=== PATIENT | female | born 1995 | race Caucasian/White ===

== ENCOUNTER → 2022-05-21 | Outpatient (CLI) | payer MEDICAID, SELFPAY ==
[2022-05-21 13:41] LABS: Erythrocyte Sedimentation Rate 28 mm/hr (0-30)
[2022-05-21 13:43] LABS: Absolute Lymphocyte Count 2.64 X10^3/uL (0.83-4.51); Absolute Neutrophil Count 6.7 X10^3/uL (2.0-7.7); Basophil# 0.06 X10^3/uL; Basophil% 0.6 % (0-1); Eosinophil# 0.08 X10^3/uL; Eosinophils% 0.8 % (0-5); Hematocrit 39.3 % (37-47); Hemoglobin 13.8 g/dL (12.0-15.0); Lymphocyte # 2.64 X10^3/ul (0.83-4.51); Mean Corp Hgb Conc 35.1 g/dL (32-36); Mean Corpuscular Hgb 30.7 pg (27.0-32.0); Mean Corpuscular Volume 87.5 fL (81-99); Mean Platelet Vol. 9.2 fl (6.2-12.0); Monocyte# 0.69 X10^3/uL; Monocyte% 6.8 % (0-10); NRBC Flagged by Analyzer 0 % (0-5); Neutrophil # 6.66 X10^3/uL (2.7-7.7); Neutrophil % 65.6 % (47-70); Platelet Count 366 K/mm3 (150-450); RBC Distribution Width CV 11.9 % (11.6-14.6); RBC Distribution Width SD 38.2 fl (35.1-43.9); Red Blood Count 4.49 M/mm3 (4.2-5.4); White Blood Count 10.2 K/mm3 (4.4-11.0)
[2022-05-21 14:05] LABS: ALB/GLOB Ratio 0.9 RATIO (0.9-2.4); AST(SGOT) 19 U/L (15-37); Alanine Aminotransfer ALT/SGPT 24 U/L (13-56); Alkaline Phosphatase 74 U/L (45-117); Anion Gap 9 (5-15); BUN 13 mg/dL (7-18); BUN/Creat Ratio 17.4 RATIO (10-20); Calcium,Total 9.7 mg/dL (8.5-10.1); Chloride 103 mmol/L (98-107); Creatinine, Serum 0.75 mg/dL (0.55-1.02); EST Glomerular Filtration Rate 98 mL/min (>60); Est Glom Filt Rate - Afr Amer 118 mL/min (>60); Globulin 4.4 g/dL (2.2-4.2); Glucose 103 mg/dL (74-106); LDH 204 U/L (84-246); Protein, Total 8.4 g/dL (6.4-8.2); Sodium Level 135 mmol/L (136-145)
[2022-05-24 13:07] LABS: Anti-Centromere B Ab <0.2 AI (0.0-0.9); Anti-Chromatin <0.2 AI (0.0-0.9); Anti-Jo <0.2 AI (0.0-0.9); Anti-Scleroderma-70 AB <0.2 AI (0.0-0.9); RNP Ab <0.2 AI (0.0-0.9); SJOGREN'S Anti-SS-A test < 0.2 AI (0.0-0.9); SJOGREN'S Anti-SS-B test < 0.2 AI (0.0-0.9); Smith Ab <0.2 AI (0.0-0.9)
[2022-05-24 15:39] LABS: Anti-Mitochondrial AB <20.0 Units (0.0-20.0); Anti-dsDNA Ab <1 IU/mL (0-9)
[2022-05-24 16:08] LABS: Endomysial Antibody IgA Negative (Negative)
[2022-05-24 17:18] LABS: Immunoglobulin A 258 mg/dL (87-352); t-Transglutaminase IgA <2 U/mL (0-3)
[2022-05-27 22:06] LABS: Cytoplasmic Ab (C-ANCA) <1:20 titer (Neg:<1:20); Immunoglobulin A 261 mg/dL (87-352); Immunoglobulin E 16 IU/mL (6-495); Immunoglobulin G 886 mg/dL (586-1602)
[2022-05-28 10:06] LABS: Anti-Smooth Muscle ABS 8 Units (0-19); Immunoglobulin M 246 mg/dL (26-217); Perinuclear Ab (P-ANCA) <1:20 titer (Neg:<1:20)
== END | disposition home or self-care (01) ==
PROVIDERS: Referring Provider Internal Medicine Gastroenterology; Visit Provider Internal Medicine Gastroenterology
DX: E66.9 Obesity, unspecified (principal); Z83.79 Family history of other diseases of the digestive system
CPT/HCPCS: 36415; 80053; 82784; 82785; 83516; 83615; 85025; 85652; 86140; 86225; 86235; 86255; 86256

== ENCOUNTER → 2022-06-21 | Outpatient (CLI) | payer MEDICAID, SELFPAY ==
--- NOTE | 2022-06-21 07:54 | US_ITS ---
STUDY: ABDOMINAL ULTRASOUND - ELASTOGRAPHY REASON FOR VISIT: Female, 26 years old. Obesity. TECHNIQUE: Liver stiffness measurements were obtained on a [employer] RS 85 ultrasound machine using a CA 1-7 probe following the SRU guidelines. 3 measurements were obtained using a 2-D-SWE method. The IQR/M was 20% suggesting a quality data set. TECHNICAL QUALITY: Adequate. COMPARISON: Comparison is made with prior examination done earlier today. FINDINGS: Liver: Mild degree of fatty infiltration of the liver. Median liver stiffness measured 4 kPa. US/Elastography Parenchyma/Organ IMPRESSION: Liver stiffness measures 4 kPa compatible with FO (Normal) Metavir score. score. Electronically Signed: Harrison Cantu MD at 10:46 EDT ,
--- NOTE | 2022-06-21 07:54 | US_ITS ---
STUDY: ABDOMINAL ULTRASOUND - RIGHT UPPER QUADRANT REASON FOR VISIT: Female, 26 years old liver screening -- OBESITY -- FAMILY HX OF FATTY LIVER TECHNIQUE: Ultrasound evaluation of the right upper quadrant was performed with real-time and static grey-scale imaging. TECHNICAL QUALITY: Adequate. COMPARISON: None. FINDINGS: Liver: The liver measures 15.3 cm. There is increased echogenicity consistent with a mild degree of fatty infiltration. The bile ducts are within normal limits. There is hepatic color flow. The direction of portal flow is hepatopetal. There is no demonstrated mass lesion. Gallbladder: Normal distended gallbladder. The gallbladder wall measures 2.0 mm. There is a negative sonographic Urbina''s sign. There is no pericholecystic fluid. There are no gallstones. Common Bile Duct (C.B.D.): The common bile duct measures 4.1 mm. Pancreas: Normal size of the head, body and tail of the pancreas. There is normal echogenicity of the pancreas. There is no demonstrated pancreatic mass or cyst. Right Kidney: Normal size of the right kidney. The right kidney measures 10 cm x 5.4 cm x 4.9 cm. Normal renal cortex. The right cortex measures 1.4 cm. There is no demonstrated renal mass or cyst. There is no right hydronephrosis. US/Abdomen Limited IMPRESSION: Mild degree of fatty infiltration of the liver. Electronically Signed: Harrison Cantu MD at 10:39 EDT ,
== END | disposition home or self-care (01) ==
PROVIDERS: Referring Provider Internal Medicine Gastroenterology; Visit Provider Internal Medicine Gastroenterology
DX: E66.9 Obesity, unspecified (principal); Z83.79 Family history of other diseases of the digestive system
CPT/HCPCS: 76705; 76981

== ENCOUNTER → 2022-08-17 | Outpatient (CLI) | payer MEDICAID, SELFPAY | END | disposition home or self-care (01) | LOC: LAB 15:53 | PROVIDERS: PCP Internal Medicine; Visit Provider Nurse Practitioner Adult Health | DX: R79.82 Elevated C-reactive protein (CRP) (principal) | CPT/HCPCS: 36415; 86140 ==

== ENCOUNTER → 2023-08-09 | Outpatient (CLI) | payer MEDICAID, SELFPAY ==
[2023-08-09 16:43] LABS: Syphilis Antibodies Non-reactive
[2023-08-13 00:06] LABS: Lyme IgG P18 Ab Absent (.); Lyme IgG P23 Ab Absent (.); Lyme IgG P28 Ab Absent (.); Lyme IgG P30 Ab Absent (.); Lyme IgG P39 Ab Absent (.); Lyme IgG P41 Ab Absent (.); Lyme IgG P45 Ab Absent (.); Lyme IgG P58 Ab Absent (.); Lyme IgG P66 Ab Absent (.); Lyme IgG P93 Ab Absent (.); Lyme IgG WB Interpretation Negative (.); Lyme IgM P23 Ab Absent (.); Lyme IgM P39 Ab Absent (.); Lyme IgM P41 Ab Absent (.); Lyme IgM WB Interpretation Negative (.)
== END | disposition home or self-care (01) ==
PROVIDERS: PCP Internal Medicine; Visit Provider Dermatology
DX: L30.8 Other specified dermatitis (principal); L82.1 Other seborrheic keratosis; L57.8 Other skin changes due to chronic exposure to nonionizing radiation; D22.5 Melanocytic nevi of trunk; L81.4 Other melanin hyperpigmentation; D18.01 Hemangioma of skin and subcutaneous tissue; Z71.89 Other specified counseling; D22.9 Melanocytic nevi, unspecified
CPT/HCPCS: 36415; 86617; 86780

== ENCOUNTER 2025-08-02 10:12 | Emergency (ER) | payer OTHER, SELFPAY ==
[2025-08-02 10:13] VITALS: BP 119/94; PULSE 117; RESP 18; TEMP 36.6; O2SAT 99; BMI 24.8
[2025-08-02 10:21] VITALS: BP 122/93; PULSE 121; RESP 17; O2SAT 100
--- NOTE | 2025-08-02 10:26 | ED.VIS.CHEST ---
HPI History of Present Illness Chief Complaint: Chest Pain Informant: patient Onset/Context/Timing Onset: Days (3) Activity at onset: gradual Timing: Intermittent Quality: Positive for Sharp Location: Substernal Worsened By: Nothing Relieved By: Nothing Associated Symptoms: Positive for Lightheadedness (Occasional) and Palpitations; Negative for Nausea, Vomiting, Diaphoresis, Dyspnea, Cough, Fever or Acid Reflux Narrative Narrative: Patient presents with chest pain that has been intermittent over the past 3 days. Patient states it comes on gradually. Patient describes it as sharp. Patient states is over the substernal area. Patient states nothing makes it better nothing makes it worse. Patient admits to occasional lightheadedness. Patient also admits to some palpitations where she feels like her heart is racing today. Patient denies any shortness of breath or cough. Patient denies any nausea or vomiting. Patient denies any diaphoresis. Patient denies any cardiac or PE risk factors. CVD Risk Factors: Negative for Hypertension, Diabetes, Hypercholesterolemia, Family History 1' </=55 or Smoking PE Risk Factors: Negative for Recent Travel/Surgery, Recent Immobilization, Prior DVT or PE, Cancer or OCP + Smoking + >/=35 [facility] Medical History (Updated 08/02/25 @ 13:[address] Thomas Rust DO) ADHD (attention deficit hyperactivity disorder) Home Medications ?Medication ?Instructions ?Recorded ?Last Taken ?Type dextroamphetamine-amphetamine ER 20 mg PO QAM 08/17/22 Unknown History 20 mg 24hr capsule,extend release (Adderall XR) phentermine 30 mg capsule 30 mg PO DAILY #30 caps 08/17/22 Unknown Rx Allergy/AdvReac Type Severity Reaction Status Date / Time iodine AdvReac Intermediate Rash Verified 08/02/25 10:24 Surgical History (Updated 08/02/25 @ 10:[address] Thomas Rust DO) Hx of appendectomy Hx of shoulder surgery Social History (Updated 08/02/25 @ 10:[address] Thomas Rust DO) Smoking Status: Never smoker alcohol intake: current alcohol intake frequency: a few times a week substance use type: marijuana ROS ROS ED Constitutional Constitutional ED: Denies chills or fever(s) Eyes Eyes: Denies blurry vision or change in vision ENT ENT ED: Denies rhinorrhea or sore throat Cardiovascular Cardiovascular: Reports chest pain and palpitations Respiratory/Chest Respiratory/Chest: Denies cough or dyspnea Gastrointestinal Gastrointestinal: Denies nausea or vomiting Genitourinary Genitourinary ED: Denies dysuria or hematuria Musculoskeletal Musculoskeletal: Denies back pain or neck pain Integumentary Denies abscess or rash Neurologic Neurologic: Denies headache(s) or weakness Allergic/Immunologic Allergic/Immunologic ED: Denies mouth swelling or urticaria EXAM Physical Exam Const Vital Signs: 08/02/25 10:13 08/02/25 10:19 08/02/25 10:21 Temperature 97.9 F Temperature Source Temporal Pulse Rate 117 H 121 H Respiratory Rate 18 17 Respiratory Effort Normal Non-Labored Respiratory Pattern Normal Blood Pressure 119/94 H 122/93 H Blood Pressure Mean 102 102 Pulse Ox 99 100 Oxygen Delivery Method Room Air Room Air 08/02/25 10:32 08/02/25 12:12 Temperature Temperature Source Pulse Rate 110 H Respiratory Rate 22 H Respiratory Effort Respiratory Pattern Blood Pressure 117/105 H Blood Pressure Mean 109 Pulse Ox 100 Oxygen Delivery Method Room Air Room Air Positive well nourished and well developed General Appearance ED: well developed and NAD HEENT Reports moist mucous membranes Neck supple and no JVD Chest Wall palpation of chest normal Resp normal respiratory effort and clear to auscultation bilaterally Cardio regular rhythm Rate: tachycardic GI soft to palpation, non-tender and non-distended Extremity normal to inspection General Extremety ED: Negative for edema or tenderness General Extremity: Negative for edema Neuro oriented x3, CN's II-XII intact bilaterally and no sensory deficits noted Sensorium / Orientation: awake and alert Motor Exam: strength 5/5 throughout Psych mental status grossly normal Skin no rashes or lesions noted Heart Score History: Slightly/Non-Suspicious Age: </= 45 years Risk Factors: No Risk Factors Troponin: </= Normal Limit Score: 0 MDM MDM MDM Narrative Medical decision making narrative: Differential diagnosis includes cardiac dysrhythmia, cardiac ischemia, pneumonia, bronchitis, pulmonary embolism, gastroesophageal reflux disease, and anxiety. EKG will be obtained to assess for cardiac dysrhythmia and cardiac ischemia. Chest x-ray will be obtained to assess for pneumonia or bronchitis. CBC will be obtained to assess for leukocytosis and anemia. Basic metabolic profile will be obtained to assess for electrolyte abnormality renal function. High-sensitivity troponin will be obtained to assess for cardiac ischemia. D-dimer will be obtained to assess for pulmonary embolism. 2-hour repeat high-sensitivity troponin will be obtained to assess for ongoing cardiac ischemia. Lab Data Attestation: I reviewed the patient's lab results. Lab results narrative: CBC was reviewed and was within normal limits. Basic metabolic profile was reviewed and was within normal limits. Initial high-sensitivity troponin was reviewed and was less than 6. Serum hCG was reviewed and was negative. D-dimer was reviewed and was normal at 0.27. 2-hour repeat high-sensitivity troponin was reviewed and was less than 6. Labs: Laboratory Results - last 24 hr 08/02/25 08/02/25 08/02/25 10:40 11:31 12:33 WBC 5.9 RBC 4.94 Hgb 15.2 H Hct 42.7 MCV 86.4 MCH 30.8 MCHC 35.6 RDW Std Deviation 37.2 RDW Coeff of Jeff 11.8 Plt Count 329 MPV 9.4 Immature Gran % (Auto) 0.200 Neut % (Auto) 59.8 Lymph % (Auto) 27.9 Real % (Auto) 9.4 Eos % (Auto) 2.0 Baso % (Auto) 0.7 Absolute Neuts (auto) 3.5 Absolute Lymphs (auto) 1.64 Nucleated RBC % 0 D-Dimer Quant (PE/DVT) Cancelled 0.27 Sodium 139 Potassium 4.0 Chloride 101 Carbon Dioxide 24.9 Anion Gap 13 BUN 12 Creatinine 0.85 Estim Creat Clear Calc 89.46 Est GFR (MDRD) Non-Af 94 BUN/Creatinine Ratio 13.5 Glucose 104 H Calcium 9.2 Troponin T High Sens < 6 Troponin T Hi Sens 2 Hr < 6 Serum , Qual NEGATIVE Radiography Chest X-Ray - ED: 2 View, Read by ED Physician, Read by Radiologist and No Acute Disease Diagnostic Testing: Clinical Impression(s) from Imaging Studies Chest X-Ray 08/02/25 10:32 IMPRESSION: Normal Reading Location: [facility] and lateral chest x-ray was obtained. There are 2 views. On my independent interpretation, lung paredes are clear. There is normal cardiac silhouette. Bony thorax is normal. There is no acute process noted. Radiologist also interpreted the x-ray and agrees. EKG Initial EKG: Attestation: I personally reviewed and interpreted this EKG as follows: Interpretation: No Acute Injury Pattern and Sinus Tachycardia (112) Comments: EKG was obtained. On my independent interpretation, it showed a sinus tachycardia with a rate of 112. [place] interval, QRS interval, and QTc intervals were all normal. [place] was normal. There are no acute ST or T wave changes. Prior EKG tracings: not available for review Prior: No Prior Treatment and Re-Evaluation :: Patient was given aspirin. Patient was advised of her findings. Patient has a HEART score of 0. Patient was advised that this is low risk for acute cardiac event. Patient was instructed to follow-up with her primary care physician in 5 to 7 days for further evaluation. Patient understood and was agreeable with the plan. All questions were answered. Discharge Plan Triage Chief Complaint: Chest Pain ED Provider: Thomas Rust Dx/Rx/DC Orders Clinical Impression: Chest pain, ADHD (attention deficit hyperactivity disorder) Instructions: ED Chest Pain, Uncertain Cause Prescriptions: No Action dextroamphetamine-amphetamine [Adderall XR] 20 mg capsule,extended release 24hr 20 mg PO QAM phentermine 30 mg capsule 30 mg PO DAILY Qty: 30 0RF Rx Instructions: administer 2 hours after breakfast Primary Care Provider: Care Physician,No Primary Referrals: Placido Mayer MD [Med Staff - Health Education Director] - 5-7 Days Care Physician,No Primary [Primary Care Provider] - Print Language: Divehi Disposition Disposition: Home, Self Care
--- NOTE | 2025-08-02 10:32 | RAD_ITS ---
PROCEDURE: CHEST PA AND LATERAL 08/02/2025 REASON FOR EXAM: CHEST PAIN TECHNIQUE: Procedure Code: RADCXR Modality: DX Procedure: CHEST PA AND LATERAL COMPARISON: None FINDINGS: Hardware: EKG leads Heart: Normal Mediastinum: Normal Lungs: Clear. No pneumothorax or pleural effusion. Bones: The bones are unremarkable. RAD/Chest PA and Lateral IMPRESSION: Normal Reading Location: [id number]
[2025-08-02 10:53] LABS: Hematocrit 42.7 % (37-47); Hemoglobin 15.2 g/dL (12.0-15.0); Immature Granulocytes Count 0.010 X10^3/uL (0.0-0.0); Mean Corp Hgb Conc 35.6 g/dL (32-36); Mean Corpuscular Volume 86.4 fL (81-99); Mean Platelet Vol. 9.4 fl (6.2-12.0); NRBC Flagged by Analyzer 0 % (0-5); Platelet Count 329 K/mm3 (150-450); RBC Distribution Width CV 11.8 % (11.6-14.6); RBC Distribution Width SD 37.2 fl (35.1-43.9); Red Blood Count 4.94 M/mm3 (4.2-5.4); White Blood Count 5.9 K/mm3 (4.4-11.0)
[2025-08-02 11:16] LABS: Anion Gap 13 (5-15); BUN 12 mg/dL (4-19); BUN/Creat Ratio 13.5 RATIO (10-20); Calcium,Total 9.2 mg/dL (7.6-11.0); Carbon Dioxide 24.9 mmol/L (21.0-32.0); Chloride 101 mmol/L (98-108); Estimated Creatinine Clearance 89.46 ml/min (50-250); Glucose 104 mg/dL (70-99); Potassium 4.0 mmol/L (3.3-5.1); Troponin T High Sensitivity < 6 ng/L (<=14)
[2025-08-02 11:31] LABS: Internal QC Validated? YES +Cl - CLEAR BKGD; Pregnancy, Serum, hCG Quali. NEGATIVE Negative; Record Kit Lot#, Serum Preg. 947241
[2025-08-02 12:01] LABS: D-Dimer Quantitative (DVT/PE) 0.27 FEU/ug/m (0.27-0.49)
[2025-08-02 12:12] VITALS: BP 117/105; PULSE 110; RESP 22; O2SAT 100
[2025-08-02 13:03] LABS: Troponin T High Sens 2 HR < 6 ng/L (<=14)
[2025-08-02 13:33] VITALS: BP 127/97; PULSE 100; RESP 14; TEMP 36.6; O2SAT 100
== END 2025-08-02 13:34 | disposition home or self-care (01) ==
PROVIDERS: Emergency Provider Emergency Medicine; Visit Provider Emergency Medicine
DX: R07.9 Chest pain, unspecified (principal); F90.9 Attention-deficit hyperactivity disorder, unspecified type; R00.2 Palpitations; F12.90 Cannabis use, unspecified, uncomplicated
CPT/HCPCS: 71046; 80048; 84484; 84703; 85025; 85379; 93005; 99283; A4216